=== PATIENT | female | born 1950 | race Caucasian/White ===

== ENCOUNTER → 2016-11-13 | Outpatient (CLI) | payer MEDICARE ==
[~2016-11-13] MED LIST: ATENOLOL50 MG PO; PRILOSEC OTC20 MG PO; SINGULAIR10 MG PO; ZANTAC 150150 MG PO
[2016-11-13 10:06] LABS: BUN 17 mg/dL (7-18)
[2016-11-13 10:11] LABS: GFR (ESTIMATED) 72 ML/MIN (59-)
[2016-11-14 10:39] LABS: Creatinine, Urine 276.2 mg/dL (Not Estab.); Microalbumin, Urine 22.5 ug/mL (Not Estab.)
== END ==
LOC: LAB 07:33
PROVIDERS: Family Medicine
DX: I10 Essential (primary) hypertension (principal); R73.01 Impaired fasting glucose; E78.5 Hyperlipidemia, unspecified